=== PATIENT | male | born 1935 | race Caucasian/White ===

== ENCOUNTER → 2020-12-04 | Outpatient (CLI) | payer OTHER | LOC: HYPER 08:07 | PROVIDERS: ATTEND Emergency Medicine | DX: T81.89XA Other complications of procedures, not elsewhere classified, initial encounter (principal); S80.261A Insect bite (nonvenomous), right knee, initial encounter; L97.822 Non-pressure chronic ulcer of other part of left lower leg with fat layer exposed; R60.1 Generalized edema; Z79.02 Long term (current) use of antithrombotics/antiplatelets; Z87.891 Personal history of nicotine dependence; Z96.653 Presence of artificial knee joint, bilateral; Z79.82 Long term (current) use of aspirin; Y92.238 Other place in hospital as the place of occurrence of the external cause; Y83.8 Other surgical procedures as the cause of abnormal reaction of the patient, or of later complication, without mention of misadventure at the time of the procedure ==

== ENCOUNTER → 2020-12-19 | Outpatient (CLI) | payer OTHER | LOC: HYPER 09:48 | PROVIDERS: ATTEND Emergency Medicine | DX: T81.89XD Other complications of procedures, not elsewhere classified, subsequent encounter (principal); S80.261D Insect bite (nonvenomous), right knee, subsequent encounter; L97.822 Non-pressure chronic ulcer of other part of left lower leg with fat layer exposed; R60.1 Generalized edema; Z79.02 Long term (current) use of antithrombotics/antiplatelets; Z87.891 Personal history of nicotine dependence; Z96.653 Presence of artificial knee joint, bilateral; Z79.82 Long term (current) use of aspirin; Y83.8 Other surgical procedures as the cause of abnormal reaction of the patient, or of later complication, without mention of misadventure at the time of the procedure ==

== ENCOUNTER → 2020-12-19 | Outpatient (CLI) | payer OTHER | LOC: RAD 12:29 | PROVIDERS: ATTEND Emergency Medicine | DX: S80.261A Insect bite (nonvenomous), right knee, initial encounter (principal); L97.822 Non-pressure chronic ulcer of other part of left lower leg with fat layer exposed; R60.1 Generalized edema; I70.8 Atherosclerosis of other arteries; X58.XXXA Exposure to other specified factors, initial encounter; Y93.89 Activity, other specified; Y92.89 Other specified places as the place of occurrence of the external cause; Y99.8 Other external cause status ==

== ENCOUNTER → 2021-01-02 | Outpatient (CLI) | payer OTHER | LOC: HYPER 08:07 | PROVIDERS: ATTEND Emergency Medicine | DX: T81.89XD Other complications of procedures, not elsewhere classified, subsequent encounter (principal); S80.261D Insect bite (nonvenomous), right knee, subsequent encounter; L97.822 Non-pressure chronic ulcer of other part of left lower leg with fat layer exposed; R60.1 Generalized edema; Z79.02 Long term (current) use of antithrombotics/antiplatelets; Z87.891 Personal history of nicotine dependence; Z96.653 Presence of artificial knee joint, bilateral; Z79.82 Long term (current) use of aspirin; Y83.8 Other surgical procedures as the cause of abnormal reaction of the patient, or of later complication, without mention of misadventure at the time of the procedure ==

== ENCOUNTER → 2021-01-15 | Outpatient (CLI) | payer OTHER | LOC: HYPER 10:24 | PROVIDERS: ATTEND Emergency Medicine | DX: T81.89XD Other complications of procedures, not elsewhere classified, subsequent encounter (principal); S80.261D Insect bite (nonvenomous), right knee, subsequent encounter; L97.822 Non-pressure chronic ulcer of other part of left lower leg with fat layer exposed; R60.1 Generalized edema; Z79.02 Long term (current) use of antithrombotics/antiplatelets; Z87.891 Personal history of nicotine dependence; Z96.653 Presence of artificial knee joint, bilateral; Z79.82 Long term (current) use of aspirin; Y83.8 Other surgical procedures as the cause of abnormal reaction of the patient, or of later complication, without mention of misadventure at the time of the procedure ==